=== PATIENT | female | born 1945 | race Two or more races ===

== ENCOUNTER → 2018-06-07 19:06 | Emergency (ER) | payer SELFPAY ==
[~2018-06-07 19:06] MED LIST: Morphine INJ* 4 MG/ML 1 ML SYRINGE (NEW SYRINGE VERSION) IV ONE; NS 0.9% 500 ML* 500 ML IV ONE; Ondansetron INJ* 2 MG/ML VIAL IV ONE
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
[2018-06-07 21:00] LABS: ABS Basophils 0.1 10^3/ul (0-0.2); ABS Eosinophils 0 10^3/ul (0-0.6); ABS Lymphocytes 0.7 10^3/ul (1.0-4.8); ABS Monocytes 0.3 10^3/ul (0-0.8); ABS Neutrophils 12.2 10^3/ul (1.5-7.7); ABS Nucleated RBC 0 10^3/ul; Eosinophil % 0.1 % (0-6); Hematocrit 40 % (35-47); Hemoglobin 13.3 g/dl (12.0-16.0); Lymphocyte % 5.3 % (25-47); Mean Corpuscular HGB Conc 33 g/dl (31-36); Mean Corpuscular Hemoglobin 30 pg (27-31); Mean Corpuscular Volume 90 fL (80-97); Nucleated Red Blood Cells % 0; Platelet Count 153 10^3/ul (150-450); Red Blood Count 4.47 10^6/ul (4.00-5.40); Red Cell Distribution Width 15 % (10.5-15); White Blood Count 13.3 10^3/ul (3.5-10.8)
[2018-06-07 21:16] LABS: EGFR Non-African American 92.4 (>60)
[2018-06-08 03:31] VITALS: BP 188/93
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
== END | disposition short-term general hospital (02) ==
LOC: ED 19:06
DX: S27.329A Contusion of lung, unspecified, initial encounter (principal); S22.20XA Unspecified fracture of sternum, initial encounter for closed fracture; T14.90XA Injury, unspecified, initial encounter; V49.9XXA Car occupant (driver) (passenger) injured in unspecified traffic accident, initial encounter; Y92.488 Other paved roadways as the place of occurrence of the external cause; M54.5 Low back pain; Z87.891 Personal history of nicotine dependence; M25.532 Pain in left wrist
CPT/HCPCS: 36415; 71045; 80053; 83605; 85025; 93005; 96361; 96374; 96375; 99285; J2270; J2405